=== PATIENT | male | born 1955 | race Caucasian/White ===

== ENCOUNTER 2017-09-15 07:26 | Emergency (ER) | payer OTHER ==
[~2017-09-15] VITALS: Ht 172.7 cm; Wt 77.1 kg
[~2017-09-15 07:26] MED LIST: ERYTHROMYCIN5 MG/G2 OP; NORCO 5-325 TA1 EACH PO; PREDNICOT20 MG PO
== END 2017-09-15 08:25 | disposition home or self-care (01) ==
LOC: ED 07:26
DX: S90.01XA Contusion of right ankle, initial encounter (principal); Z88.0 Allergy status to penicillin; Z88.1 Allergy status to other antibiotic agents; W22.8XXA Striking against or struck by other objects, initial encounter; Y93.89 Activity, other specified; Y92.89 Other specified places as the place of occurrence of the external cause; Y99.8 Other external cause status

== ENCOUNTER → 2018-03-07 | Outpatient (CLI) | payer OTHER | LOC: ORTHO 03:35 | DX: M25.512 Pain in left shoulder (principal) ==

== ENCOUNTER → 2022-06-07 | Outpatient (CLI) | payer MEDICARE | END | disposition home or self-care (01) | LOC: RAD 11:07 | PROVIDERS: ATTEND Chiropractor | DX: M47.816 Spondylosis without myelopathy or radiculopathy, lumbar region (principal) ==